=== PATIENT | female | born 1955 | race Caucasian/White ===

== ENCOUNTER → 2018-02-13 11:58 | Outpatient (CLI) | payer OTHER, SELFPAY ==
--- NOTE | 2018-02-13 | DI.MG.S_ITS ---
BILATERAL DIGITAL SCREENING MAMMOGRAM 3D/2D WITH CAD: 02/13/2018 CLINICAL: Routine screening. Family history of breast cancer. Comparison is made to exams dated: 11/14/2012 mammogram, 09/22/2009 mammogram, and 05/02/2007 mammogram - [facility]. The tissue of both breasts is predominantly fatty. Current study was also evaluated with a Computer Aided Detection (CAD) system. There is a focal asymmetry in the right breast at 6 o'clock middle depth. No other significant masses, calcifications, or other findings are seen in either breast. IMPRESSION: INCOMPLETE: NEEDS ADDITIONAL IMAGING EVALUATION The focal asymmetry in the right breast is indeterminate. Additional views with possible ultrasound are recommended. This exam was interpreted at Station ID: [id number]. NOTE: For mammograms, a report in lay terms will be sent to the patient. Approximately 15% of breast malignancies will not be visualized mammographically. In the management of a palpable breast mass, a negative mammogram must not discourage biopsy of a clinically suspicious lesion. Electronically Signed By: Renetta sherman/remigio:02/13/2018 16:55:58 letter sent: Additional Imaging Needed ACR BI-RADS Category 0: Incomplete 3340F
== END ==
PROVIDERS: PCP Family Medicine; Visit Provider Family Medicine
DX: Z12.31 Encounter for screening mammogram for malignant neoplasm of breast (principal); Z80.3 Family history of malignant neoplasm of breast
CPT/HCPCS: 77063; 77067

== ENCOUNTER → 2018-03-07 14:23 | Outpatient (CLI) | payer OTHER, SELFPAY ==
--- NOTE | 2018-03-07 | DI.US.S_ITS ---
LIMITED ULTRASOUND OF RIGHT BREAST: 03/07/2018 CLINICAL: Patient returns for additional imaging over a suspected focal asymmetry in the right breast. Comparison is made to exams dated: 03/07/2018 mammogram, 02/13/2018 mammogram - [facility], and 11/14/2012 mammogram - [facility]. Real-time and Doppler ultrasound of the right breast 6 o'clock, and retroareolar regions were performed. Davis scale images of the real-time examination were reviewed. There is a 0.6 x 0.6 x 0.5 cm oval indistinct probable cluster of hypoechoic microcysts with increased through transmission, internal echogenic foci, and no vascularity on Doppler ultrasound located in the right breast at 6 o'clock 6 cm from the nipple. This appears to correlate with the finding seen on mammography. IMPRESSION: PROBABLY BENIGN 0.6 cm probable cluster of microcysts located in the right breast at 6 o'clock 6 cm from the nipple is probably benign. A follow-up mammogram and possible ultrasound in 6 months is recommended to demonstrate stability. The patient is advised to monitor her breasts and to return sooner for re-evaluation should she feel anything grow or change. This exam was interpreted at Station ID: [id number]. Electronically Signed By: Quan Dozier M.D. ecl/:03/07/2018 18:22:24 letter sent: Followup Recommended Ultrasound BI-RADS: 3 Probably benign
--- NOTE | 2018-03-07 | DI.MG.S_ITS ---
UNILATERAL RIGHT DIGITAL DIAGNOSTIC MAMMOGRAM 3D/2D WITH ADDITIONAL VIEWS: 03/07/2018 CLINICAL: Additional evaluation requested from prior study. Family history of breast cancer. Comparison is made to exams dated: 02/13/2018 mammogram - [facility], 11/14/2012 mammogram, and 09/22/2009 mammogram - [facility]. The tissue of right breast is predominantly fatty. Previously identified focal asymmetry in the right breast at 6 o'clock middle depth on comparison screening mammograms persists with additional views. This asymmetry measures up to 0.6 cm and demonstrates an oval morphology with indistinct margins. IMPRESSION: INCOMPLETE: NEEDS ADDITIONAL IMAGING EVALUATION Previously identified focal asymmetry in the right breast at 6 o'clock middle depth on comparison screening mammograms persists with additional views. A targeted ultrasound is recommended for further evaluation, and will be performed immediately following this exam. This exam was interpreted at Station ID: [id number]. NOTE: For mammograms, a report in lay terms will be sent to the patient. Approximately 15% of breast malignancies will not be visualized mammographically. In the management of a palpable breast mass, a negative mammogram must not discourage biopsy of a clinically suspicious lesion. Electronically Signed By: Quan Dozier M.D. ecl/:03/07/2018 18:19:07 letter sent: Additional Imaging Needed ACR BI-RADS Category 0: Incomplete 3340F
== END ==
PROVIDERS: PCP Family Medicine; Visit Provider Family Medicine
DX: R92.8 Other abnormal and inconclusive findings on diagnostic imaging of breast (principal); N64.89 Other specified disorders of breast; Z80.3 Family history of malignant neoplasm of breast
CPT/HCPCS: 76642; 77065; G0279

== ENCOUNTER → 2018-12-13 09:00 | Outpatient (CLI) | payer OTHER, SELFPAY ==
--- NOTE | 2018-12-13 | DI.MG.S_ITS ---
BILATERAL DIGITAL DIAGNOSTIC MAMMOGRAM 3D/2D SHORT-TERM FOLLOW-UP: 12/13/2018 CLINICAL: Patient returns for late 6 month follow up of right breast, due for bilateral exam. Comparison is made to exams dated: 03/07/2018 mammogram, 02/13/2018 mammogram - [facility], and 11/14/2012 mammogram - [facility]. The tissue of both breasts is predominantly fatty. Previously identified focal asymmetry in the right breast at 6 o'clock middle depth on comparison screening mammograms is stable in size and morphology, and persists with additional views. No significant masses, calcifications, or other findings are seen in either breast. IMPRESSION: INCOMPLETE: NEEDS ADDITIONAL IMAGING EVALUATION Previously identified focal asymmetry in the right breast at 6 o'clock middle depth is stable. A targeted ultrasound is recommended for confirmation of stability, and will be performed immediately following this exam. This exam was interpreted at Station ID: [id number]. NOTE: For mammograms, a report in lay terms will be sent to the patient. Approximately 15% of breast malignancies will not be visualized mammographically. In the management of a palpable breast mass, a negative mammogram must not discourage biopsy of a clinically suspicious lesion. Electronically Signed By: Hyun kumar/:12/13/2018 11:15:57 ACR BI-RADS Category 0: Incomplete 3340F
--- NOTE | 2018-12-13 | DI.US.S_ITS ---
LIMITED ULTRASOUND OF RIGHT BREAST: 12/13/2018 CLINICAL: 6 month follow-up of probable microcystic cluster. Comparison is made to exams dated: 12/13/2018 mammogram, 03/07/2018 ultrasound, 03/07/2018 mammogram, 02/13/2018 mammogram - [facility], and 11/14/2012 mammogram - [facility]. Color flow and real-time ultrasound of the right breast 6 o'clock region were performed. Davis scale images of the real-time examination were reviewed. There is a stable cluster of cysts in the right breast at 6 o'clock middle depth. This cluster is irregular, taller than wide, and less clearly cystic compared to prior. No posterior acoustic shadowing or enhancement. Color flow imaging demonstrates that there is no vascularity present. This correlates with mammography findings. IMPRESSION: PROBABLY BENIGN The cluster of cysts in the 6:00 right breast has changed slightly but is still probably benign, supported by lack of significant change or suspicious features on mammogram. A follow-up ultrasound in 6 months is recommended for continued surveillance. Findings and recommendations were conveyed to the patient at time of exam. This exam was interpreted at Station ID: [id number]. Electronically Signed By: Hyun kumar/:12/13/2018 11:21:27 letter sent: Followup Recommended Ultrasound BI-RADS: 3 Probably benign
== END ==
PROVIDERS: PCP Family Medicine; Visit Provider Family Medicine
DX: R92.8 Other abnormal and inconclusive findings on diagnostic imaging of breast (principal); N60.01 Solitary cyst of right breast
CPT/HCPCS: 76642; 77066; G0279

== ENCOUNTER → 2020-01-06 13:41 | Outpatient (CLI) | payer OTHER, SELFPAY ==
--- NOTE | 2020-01-06 | DI.US.S_ITS ---
LIMITED ULTRASOUND OF RIGHT BREAST AND AXILLA: 01/06/2020 CLINICAL: Patient returns today to evaluate a density in the right breast. No prior exams were available for comparison. Ultrasound of the right breast 6-7 o'clock, retroareolar, and axilla regions was performed. There is a stable benign cluster of cysts in the right breast at 6 o'clock anterior depth. THis has demonstrated approximately 24 months stability. The right axilla was interogated and normal appearing lymph nodes are visualized. IMPRESSION: BENIGN No right axillary adenopathy. There is no sonographic evidence of malignancy. The stable cluster of cysts in the right breast is benign. A 1 year screening mammogram is recommended. This exam was interpreted at Station ID: [id number]. Electronically Signed By: Renetta sherman/:01/06/2020 15:29:44 letter sent: Normal Exam Ultrasound BI-RADS: 2 Benign
--- NOTE | 2020-01-06 | DI.MG.S_ITS ---
BILATERAL DIGITAL DIAGNOSTIC MAMMOGRAM 3D/2D SHORT-TERM FOLLOW-UP: 01/06/2020 CLINICAL: Patient returns for a 24 month follow up of the right breast, due for bilateral exam. Comparison is made to exams dated: 12/13/2018 mammogram, 03/07/2018 mammogram, and 02/13/2018 mammogram - [facility]. The tissue of both breasts is predominantly fatty. There is a stable focal asymmetry in the right breast at 6 o'clock middle depth. No other significant masses, calcifications, or other findings are seen in either breast. IMPRESSION: INCOMPLETE: NEEDS ADDITIONAL IMAGING EVALUATION The stable focal asymmetry in the right breast has demonstrated a cluster of microcysts on previous ultrasound. A targeted ultrasound of the right breast is recommended to demonstrate stability and will be performed immediately following this exam. This exam was interpreted at Station ID: [id number]. NOTE: For mammograms, a report in lay terms will be sent to the patient. Approximately 15% of breast malignancies will not be visualized mammographically. In the management of a palpable breast mass, a negative mammogram must not discourage biopsy of a clinically suspicious lesion. Electronically Signed By: Renetta Sanderson M.D. lk/:01/06/2020 14:12:21 ACR BI-RADS Category 0: Incomplete 3340F
== END ==
PROVIDERS: PCP Family Medicine; Referring Provider Family Medicine; Visit Provider Family Medicine
DX: R92.8 Other abnormal and inconclusive findings on diagnostic imaging of breast (principal); N60.01 Solitary cyst of right breast
CPT/HCPCS: 76642; 77066; G0279

== ENCOUNTER → 2021-02-01 16:37 | Outpatient (CLI) | payer OTHER, SELFPAY ==
--- NOTE | 2021-02-01 | DI.MG.S_ITS ---
BILATERAL DIGITAL SCREENING MAMMOGRAM 3D/2D WITH CAD: 02/01/2021 CLINICAL: Routine screening. Family history of breast cancer. Comparison is made to exams dated: 12/13/2018 mammogram, 01/06/2020 mammogram, 02/13/2018 mammogram, and 12/13/2018 [facility]. There are scattered fibroglandular elements in both breasts. Current study was also evaluated with a Computer Aided Detection (CAD) system. No significant masses, calcifications, or other findings are seen in either breast. There has been no significant interval change. IMPRESSION: NEGATIVE There is no mammographic evidence of malignancy. A 1 year screening mammogram is recommended. This exam was interpreted at Station ID: [id number]. NOTE: For mammograms, a report in lay terms will be sent to the patient. Approximately 15% of breast malignancies will not be visualized mammographically. In the management of a palpable breast mass, a negative mammogram must not discourage biopsy of a clinically suspicious lesion. Electronically Signed By: Tomas jain/remigio:02/01/2021 17:06:25 letter sent: Normal Exam ACR BI-RADS Category 1: Negative [id number]
== END ==
PROVIDERS: PCP Physician Assistant; Referring Provider Physician Assistant; Visit Provider Physician Assistant
DX: Z12.31 Encounter for screening mammogram for malignant neoplasm of breast (principal); Z80.3 Family history of malignant neoplasm of breast
CPT/HCPCS: 77063; 77067